=== PATIENT | male | born 1970 | race American Indian/Alaskan Native ===

== ENCOUNTER 2019-07-18 20:29 | Emergency (ER) | payer OTHER ==
[2019-07-18 20:52] VITALS: BP 140/92
[2019-07-18] MEDS ORDERED: IBUPROFEN 800 MG TAB PO ONE (21:06)
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
== END 2019-07-19 00:05 | disposition home or self-care (01) ==
LOC: ED 20:29
DX: S13.9XXA Sprain of joints and ligaments of unspecified parts of neck, initial encounter (principal); M25.552 Pain in left hip; I10 Essential (primary) hypertension; Z79.899 Other long term (current) drug therapy; V49.49XA Driver injured in collision with other motor vehicles in traffic accident, initial encounter; Y93.89 Activity, other specified; Y92.410 Unspecified street and highway as the place of occurrence of the external cause; Y99.8 Other external cause status
CPT/HCPCS: 72040